=== PATIENT | female | born 1970 | race Hispanic/Latino ===

== ENCOUNTER 2017-04-26 22:33 | Emergency (ER) | payer OTHER ==
[~2017-04-26] VITALS: Ht 154.9 cm; Wt 127.3 kg
[2017-04-26 22:52] VITALS: BP 147/88; PULSE 86; RESP 16; O2SAT 97
--- NOTE | 2017-04-26 23:26 | ED.REPORT ---
HPI- Female Date of Service Apr 26, 2017 ED Provider: Ap Laguerre DO Patient is a 46 year old female who presents to the ED complaining of urinary frequency onset two weeks. Associated symptoms include urinary urgency. She denies flank pain, dysuria, vaginal discharge, sores, abdominal pain or leg swelling. The patient reports that it feels like she needs to urinate even after she has already gone. Nursing Notes Stated Complaint: PROBLEMS URINATING Chief Complaint: Female Abdominal Pain Nursing Notes Reviewed: Yes Allergies: Coded Allergies: No Known Allergies (Verified , 09/30/05) General Time Seen by MD: 23:25 Chief Complaint Urinary frequency Hx Obtained From: Patient Arrived By: Walk-in Sudden in Onset?: Yes Onset Occurred: More than a week ago... (2 weeks) Symptom Duration: Since onset Severity: Current: No pain currently Similar Sx Previous: No Past Medical History Past Medical History none reported Smoking History Never Smoker Social History Other Social History: Good social support Ambulatory Status Independent Review of Systems Constitutional: Denies: Chills, Fever GI: Denies: Abdominal pain, Nausea, Vomiting Female: Reports: Urinary frequency, Urinary urgency, Urination increased, Denies: Dysuria, Flank pain, , Vaginal bleeding - abnl, Vaginal discharge Skin: Denies Itching, Denies Rash Complete sys rev & neg: except as marked. Respiratory: Denies: Non-productive cough, Shortness of breath Physical Exam Initial Vital Signs Vital Signs (First) Date Time Temp Pulse Resp B/P Pulse Ox O2 Delivery O2 Flow Rate FiO2 04/26/17 22:52 37.2 86 16 147/88 97 Room Air Initial VS: Reviewed Female Genitourinary: Exam deferred General/Constitutional: Awake, Alert, No acute distress Respiratory / Chest: Atraumatic, Breath sounds NL, Breath sounds = bilat, No respiratory distress Cardiovascular: Heart rate NL, Regular rhythm, Heart sounds NL Abdomen: Atraumatic, Soft, Non-tender Skin: Atraumatic, Color NL, No rash, Warm, Dry Head / Eyes: Atraumatic, Normocephalic, PERRL, EOMI Neurologic: Oriented X3, Speech NL, No motor deficits, No sensory deficits Psychiatric: Affect NL, Mood NL Interpretation & Diagnostics Lab Results Interpretation Test 04/26/17 23:34 04/26/17 23:56 Urine Color Yellow (YELLOW) Urine Appearance Cloudy (CLEAR,HAZY) Urine pH 5.5 (5.0-8.0) Urine Specific [place] 1.025 (1.003-1.035) Urine Protein Negativemg/dL (NEG,TRACE) Urine Glucose (UA) Negativemg/dL (NEGATIVE) Urine Ketones Negativemg/dL (NEGATIVE) Urine Occult Blood Trace (NEGATIVE) Urine Nitrite Negative (NEGATIVE) Urine Bilirubin Negative (NEGATIVE) Urine Urobilinogen Normalmg/dL (NORMAL) Urine Leukocyte Esterase Large (NEGATIVE) Urine RBC 0-2/hpf (0-2) Urine WBC >50/hpf (0-5) Urine Epithelial Cells Occasional/hpf (NONE-MOD) Urine Crystals None seen (NONE SEEN) Urine Bacteria Few/hpf (NONE-FEW) Urine Hyaline Casts None/lpf (NONE) Urine Granular Casts None seen (NONE SEEN) Urine Waxy Casts None seen (NONE SEEN) Urine Red Blood Cell Casts None seen (NONE SEEN) Urine White Blood Cell Casts None seen (NONE SEEN) Urine Mucus None seen (None Seen) Urine Trichomonas None seen (NONE SEEN) Urine Yeast None (NONE SEEN) Urinalysis Comment None Urine Culture Reflexed Indicated Re-Eval/Medical Decision Med Decision/Clinical Course Classic cystitis without pyelonephritis. PID highly unlikely. We will send out a GEN probe however. Plan for Keflex. Close outpatient follow-up. Re-Evaluation/Progress : Time of Eval: 23:41 Re-Evaluation/Progress Note: Discussed plan for discharge. Patient understands and agrees to plan. All questions were addressed. Counseled Regarding: Diagnosis, Lab results, Need for follow-up, When/why to return to ED Discharge & Departure Impression: Primary Impression: Urinary tract infection Urinary tract infection type: site unspecified Hematuria presence: without hematuria Qualified Code: N39.0 - Urinary tract infection, site not specified Disposition: Home Discharge Condition All VS Reviewed: Yes Condition: Stable Patient Instructions: Urinary Tract Infection in Women (ED) Additional Instructions: Your urine dip showed evidence of an UTI. We sent the urine out to be cultured. You can call back in a week for results of the culture and gen prob. Take Keflex 2x a day for 5 days. You can take Tylenol/Motrin as needed for pain. Follow up with your primary care physician next week. Return to the emergency department if you develop any new or concerning symptoms. Referrals: Ravi Collins DO (PCP) Aravind Attestation Portions of this note were transcribed by Anca Boyce. I, Dr. Laguerre personally performed the history, physical exam and medical decision-making; I reviewed and confirmed the accuracy of the information in the transcribed note. Signed by: Aravind Gregory, 04/26/17 copies to: Ravi Collins Todd P DO Apr 26, 2017 23:25 Cindy Boyce Apr 26, 2017 23:38
[2017-04-26] MEDS ORDERED: Phenazopyridine 97.5 mg Tablet PO ONE (23:40)
[2017-04-26 23:42] LABS: APPEARANCE,URINE CLOUDY (CLEAR,HAZY); COLOR,URINE YELLOW (YELLOW); OCCULT BLOOD,URINE TRACE (NEGATIVE); PH,URINE 5.5 (5.0-8.0); UROBILINOGEN,URINE NORMAL (NORMAL)
== END 2017-04-27 00:14 | disposition home or self-care (01) ==
LOC: SED 22:33
DX: N39.0 Urinary tract infection, site not specified (principal); B96.20 Unspecified Escherichia coli [E. coli] as the cause of diseases classified elsewhere